=== PATIENT | male | born 2000 | race African-American/Black ===

== ENCOUNTER 2023-09-11 23:30 | Emergency (ER) | payer MEDICAID ==
[2023-09-12 01:44] VITALS: PULSE 63
== END 2023-09-12 01:48 | disposition left against medical advice (07) ==
LOC: ER 23:30
DX: R52 Pain, unspecified (principal); Z53.21 Procedure and treatment not carried out due to patient leaving prior to being seen by health care provider
CPT/HCPCS: 99281

== ENCOUNTER 2023-12-13 16:31 | Emergency (ER) | payer MEDICAID ==
[~2023-12-13] VITALS: Ht 172.7 cm; Wt 58.0 kg
[2023-12-13 16:47] VITALS: O2SAT 99
[2023-12-13] MEDS: IBUPROFEN 600MG TABLET PO ONE (18:58)
[2023-12-13 19:02] VITALS: BP 124/74; PULSE 75; RESP 18; TEMP 98.2
== END 2023-12-13 19:26 | disposition home or self-care (01) ==
LOC: ER 16:31
DX: S99.911A Unspecified injury of right ankle, initial encounter (principal); G89.11 Acute pain due to trauma; W18.39XA Other fall on same level, initial encounter; Y93.89 Activity, other specified; Y92.89 Other specified places as the place of occurrence of the external cause; Y99.8 Other external cause status
CPT/HCPCS: 73590; 73610; 73630; 99284